=== PATIENT | female | born 1930 | race Caucasian/White ===

== ENCOUNTER 2017-02-28 15:46 | Emergency (ER) | payer MEDICARE, BC ==
--- NOTE | 2017-02-28 16:19 | ER Document Report ---
ED General <HUANGSIMON Jean Carlos - Last Filed: 02/28/17 20:34> <LEYDI TROY - Last Filed: 02/28/17 23:24> - General Time seen by provider: 16:15 Mode of Arrival: Medic Information source: Transfer Record, Emergency Med Personnel TRAVEL OUTSIDE OF THE [place] IN LAST 30 DAYS: No - HPI Onset: Other - see HPI note Quality of pain: No pain Associated symptoms: None Similar symptoms previously: No Recently seen / treated by doctor: No <TAINA CHAN - Last Filed: 03/01/17 10:55> - General Stated Complaint: ALTERED MENTAL STATUS Notes: Patient is a 86-year-old female with history of dementia presenting to the emergency department from [facility]. Patient resides in the Alzheimer unit at this facility. EMS reported to [facility] ED nurse that the patient has been not taking her medicine or food; they also report that the facility has stated that they "do not want to bother with this patient anymore" and they told the patient's family that he/she should take this patient to the emergency department or elsewhere. Patient is in no distress but states she is not doing well when asked. Patient is a DO NOT RESUSCITATE. (TAINA CHAN) - HPI Notes: Further history obtained from the son states that he is concerned she could be dehydrated as over the last week or 2 she has been losing weight and not taking by mouth very well. It is his brother that discussed with the facility transferring her for evaluation here. (SIMON THOMPSON) - Related Data Allergies/Adverse Reactions: Quinolones Allergy (Unknown, Verified 11/13/16 13:20) PERFUME Adverse Reaction (Mild, Uncoded 11/13/16 13:20) Past Medical History - General Information source: Transfer Record, Emergency Med Personnel - Social History Smoking Status: Unknown if Ever Smoked Family History: Hypertension Patient has suicidal ideation: No Patient has homicidal ideation: No - Past Medical History Cardiac Medical History: Reports: Hx Congestive Heart Failure - Diastolic dysfunction, Hx Hypertension Pulmonary Medical History: Reports: Hx Asthma, Hx COPD, Hx Sleep Apnea - c-pap Endocrine Medical History: Reports: Hx Diabetes Mellitus Type 1, Hx Diabetes Mellitus Type 2, Hx Hypothyroidism Malignancy Medical History: Reports: Hx Breast Cancer GI Medical History: Reports: Hx Gastroesophageal Reflux Disease Musculoskeltal Medical History: Reports Hx Arthritis, Reports Hx Restless Leg Syndrome Psychiatric Medical History: Reports: Hx Anxiety, Hx Dementia, Hx Depression, Other - Alzheimer's disease Past Surgical History: Reports: Hx Abdominal Surgery, Hx Breast Surgery, Hx Hysterectomy, Hx Mastectomy - Right, Hx Orthopedic Surgery - LEFT KNEE, Hx Tonsillectomy - Immunizations Immunizations up to date: Yes Hx Diphtheria, Pertussis, Tetanus Vaccination: Yes Hx Pneumococcal Vaccination: 11/24/10 <ROCIOTAINA - Last Filed: 03/01/17 10:55> Review of Systems - Review of Systems -: Yes ROS unobtainable due to patient's medical condition <ROCIOTAINA - Last Filed: 03/01/17 10:55> Physical Exam <SIMON THOMPSON - Last Filed: 02/28/17 20:34> <LEYDI TROY - Last Filed: 02/28/17 23:24> <TAINA CHAN - Last Filed: 03/01/17 10:55> - Vital signs Vitals: Resp 25 H 02/28/17 16:33 - Notes Notes: GENERAL: Well-appearing, well-nourished and in no acute distress. HEAD: Atraumatic, normocephalic, patient is scowling. EYES: Pupils equal round and reactive to light, extraocular movements intact, sclera anicteric, conjunctiva are normal. ENT: Nares patent. Moist mucous membranes. Patent airway. NECK: Normal range of motion, supple without lymphadenopathy. LUNGS: Coarse breath sounds with mild wheezes. HEART: Regular rate and rhythm, systolic murmur. ABDOMEN: Soft, non-tender. No guarding, no rebound. No masses appreciated. EXTREMITIES: Normal range of motion, trace edema. NEUROLOGICAL: No focal neurological deficits. Does not follow commands but is able to moves all extremities. PSYCH: Normal affect and normal mood per patient's baseline. SKIN: Warm, Dry, normal turgor, no rashes or lesions noted. (TAINA CHAN) Course <SIMON THOMPSON - Last Filed: 02/28/17 20:34> - Laboratory Result Diagrams: 02/28/17 22:22 <LEYDI TROY - Last Filed: 02/28/17 23:24> - Laboratory Result Diagrams: 02/28/17 22:22 <TAINA CHAN - Last Filed: 03/01/17 10:55> - Re-evaluation Re-evalutation: 02/28/17 19:18 Patient had refused any treatment. She does not have capable decision making. I spoke to the son and he wanted to talk with her initially. After discussing with her, she still refused. I discussed with the son some mild sedation but understanding she would probably require restrainting for evaluation. 02/28/17 20:31 I spoke with Kim at [facility]. She was not there when the patient was transferred but understood that the patient had been having decreased PO intake. I discussed with them our eval for [facility] and they will plan patient returning there unless there is some requirement for hospitalization. ( SIMON THOMPSON) - Vital Signs Vital signs: Temp Pulse Resp BP Pulse Ox 84 20 168/94 H 91 L 03/01/17 00:42 03/01/17 00:42 03/01/17 00:42 03/01/17 00:42 - Laboratory Laboratory results interpreted by me: 02/28/17 22:22 Potassium 3.4 L Glucose 112 H Discharge <SIMON THOMPSON - Last Filed: 02/28/17 20:34> <LEYDI TROY - Last Filed: 02/28/17 23:24> <TAINA CHAN - Last Filed: 03/01/17 10:55> - Discharge Clinical Impression: Alzheimer's dementia Qualifiers: Alzheimer's disease onset: unspecified onset Dementia behavioral disturbance: without behavioral disturbance Qualified Code(s): G30.9 - Alzheimer's disease, unspecified Condition: Fair Disposition: HOME-SNF (ED ONLY) Additional Instructions: Labs are normal today. Refusal to eat and drink is a normal part of end-stage dementia.Please return to the emergency room immediately if you experience any concerning symptoms including high fevers, severe headache, chest pain, difficulty breathing, abdominal pain, slurred speech, numbness or weakness in your arms or legs, or any other symptom that concerns you. Referrals: OMAR NGO MD [Primary Care Provider] - Follow up as needed Scribe Documentation - Scribe Written by Scribe:: Taina Chan 02/28/17 16:38 acting as scribe for :: Huang <TAINA CHAN - Last Filed: 03/01/17 10:55>
[2017-02-28] MEDS ORDERED: LORAZEPAM INJ 2 MG/1 ML VIAL IM ONE (19:02)
[2017-02-28 22:31] VITALS: BP 168/94
[2017-02-28 22:52] LABS: ANION GAP 10 (5-19); BLOOD UREA NITROGEN 15 mg/dL (7-20); CALCIUM 9.4 mg/dL (8.4-10.2); CARBON DIOXIDE 30 mmol/L (22-30); CHLORIDE 103 mmol/L (98-107); CREATININE RESULT 0.65 mg/dL (0.52-1.25); GLUCOSE 112 mg/dL (75-110); POTASSIUM 3.4 mmol/L (3.6-5.0); SODIUM 142.9 mmol/L (137-145)
--- NOTE | 2017-02-28 23:24 | ER Document Report ---
Doctor's Note Notes: 02/28/17 23:23 I received this patient in signout from Dr. Lafleur. Patient is demented and has had decreased oral intake in the past several weeks which is consistent with end-stage dementia. Her laboratories do not show any significant dehydration. She will be discharged back to her facility.
[2017-02-28] MEDS ORDERED: IPRATROPIUM/ALBUTEROL 0.5-2.5 MG/3 ML AMPUL NEB ONE (23:58)
== END 2017-03-01 01:00 ==
LOC: ER 15:46
DX: G30.9 Alzheimer's disease, unspecified (principal); R06.2 Wheezing; Z66 Do not resuscitate; R63.4 Abnormal weight loss; I50.9 Heart failure, unspecified; I11.0 Hypertensive heart disease with heart failure; J44.9 Chronic obstructive pulmonary disease, unspecified; E11.9 Type 2 diabetes mellitus without complications; E03.9 Hypothyroidism, unspecified; Z85.3 Personal history of malignant neoplasm of breast; Z90.710 Acquired absence of both cervix and uterus; Z90.11 Acquired absence of right breast and nipple
CPT/HCPCS: 94640; 99285; 96372; 36415; 80048; 71010; J2060; A9270; J7620